=== PATIENT | female | born 1985 | race American Indian/Alaskan Native ===

== ENCOUNTER 2020-11-27 21:41 | Emergency (ER) | payer SELFPAY ==
--- NOTE | 2020-11-27 23:19 | Emergency Department Report ---
ED General Adult HPI - General Chief complaint: Fever Stated complaint: CONSTANT FEVER Time Seen by Provider: 11/27/20 22:50 Source: patient Mode of arrival: Ambulatory Limitations: No Limitations - History of Present Illness Initial comments: Patient is a 35-year-old female presents emergency room with complaints of a fever that began 6 days ago. She states that she went to another emergency department on 11/23/2020 and states that she had an x-ray of her chest which she reports was normal. She states that she did have hypokalemia and that gave her a potassium pill. She states that she did receive a rapid COVID-19 test on 11/23/2020 and states it was negative. she states she was given a prescription for prednisone and zofran. She states that she has nausea and vomiting. She states that the vomiting has improved and she only has it once a day. she is able to tolerate PO intake. She states that she is also been having some diarrhea. She states that she does have a sore throat. She denies any cough, shortness of breath, ear pain, abdominal pain, urinary symptoms, pelvic pain, abnormal vaginal discharge. She denies any known sick contacts or recent travel. No past medical history. No allergies medications. Last menstrual cycle last week. Patient states that she has also noticed a mild diffuse rash over the last few days, she states that she does have itching, she states that she did sleep in a hotel. - Related Data Allergies Allergy/AdvReac Type Severity Reaction Status Date / Time No Known Allergies Allergy Unverified 11/27/20 21:56 ED Review of Systems ROS: Stated complaint: CONSTANT FEVER Other details as noted in HPI Comment: All other systems reviewed and negative ED Past Medical Hx - Past Medical History Previous Medical History?: No - Surgical History Past Surgical History?: No - Social History Smoking Status: Never Smoker Substance Use Type: Alcohol ED Physical Exam - General Limitations: No Limitations General appearance: alert, in no apparent distress - Head Head exam: Present: atraumatic, normocephalic - Eye Eye exam: Present: normal appearance - ENT ENT exam: Present: normal orophraynx, mucous membranes moist, TM's normal bilaterally, normal external ear exam - Neck Neck exam: Present: normal inspection, full ROM. Absent: tenderness, meningismus - Respiratory Respiratory exam: Present: normal lung sounds bilaterally. Absent: respiratory distress, wheezes, rales, rhonchi, stridor, chest wall tenderness, accessory muscle use, decreased breath sounds, prolonged expiratory - Cardiovascular Cardiovascular Exam: Present: regular rate, normal rhythm, normal heart sounds. Absent: systolic murmur, diastolic murmur, rubs, gallop - Neurological Exam Neurological exam: Present: alert, oriented X3 - Psychiatric Psychiatric exam: Present: normal affect, normal mood - Skin Skin exam: Present: warm, dry, rash (a few medium sized erythematous papules consistent with bites, no scaling, no blistering, no skin denuding, no surrounding erythema, no drainage) ED Course Vital Signs 11/27/20 11/28/20 21:57 00:58 Temperature 100.1 F H 98.6 F Pulse Rate 106 H 80 Respiratory 18 16 Rate Blood Pressure 110/83 Blood Pressure 112/74 [Left] O2 Sat by Pulse 98 100 Oximetry ED Medical Decision Making - Lab Data Result diagrams: 11/27/20 23:15 11/27/20 23:15 Lab Results 11/27/20 11/27/20 11/27/20 Range/Units 23:15 23:15 23:15 WBC 5.0 (4.5-11.0) K/mm3 RBC 3.90 (3.65-5.03) M/mm3 Hgb 11.9 (10.1-14.3) gm/dl Hct 35.5 (30.3-42.9) % MCV 91 (79-97) fl MCH 30 (28-32) pg MCHC 33 (30-34) % RDW 13.9 (13.2-15.2) % Plt Count 243 (140-440) K/mm3 [place] % (Auto) [employer] Sodium 135 L (137-145) mmol/L Potassium 3.4 L (3.6-5.0) mmol/L Chloride 98.2 (98-107) mmol/L Carbon Dioxide 25 (22-30) mmol/L Anion Gap 15 mmol/L BUN 6 L (7-17) mg/dL Creatinine 0.5 L (0.6-1.2) mg/dL Estimated GFR > 60 ml/min BUN/Creatinine Ratio 12 % Glucose 80 (65-100) mg/dL Calcium 8.7 (8.4-10.2) mg/dL Total Bilirubin < 0.20 (0.1-1.2) mg/dL AST 21 (5-40) units/L ALT 15 (7-56) units/L Alkaline Phosphatase 65 (35-129) units/L Total Protein 7.2 (6.3-8.2) g/dL Albumin 3.5 L (3.9-5) g/dL Albumin/Globulin Ratio 0.9 % HCG, Qual Negative (Negative) Urine Color (Yellow) Urine Turbidity (Clear) Urine pH (5.0-7.0) Ur Specific [place] (1.003-1.030) Urine Protein (Negative) mg/dL Urine Glucose (UA) (Negative) mg/dL Urine Ketones (Negative) mg/dL Urine Blood (Negative) Urine Nitrite (Negative) Urine Bilirubin (Negative) Urine Urobilinogen (<2.0) mg/dL Ur Leukocyte Esterase (Negative) Urine WBC (Auto) (0.0-6.0) /HPF Urine RBC (Auto) (0.0-6.0) /HPF U Epithel Cells (Auto) (0-13.0) /HPF Urine Bacteria (Auto) (Negative) /HPF Calcium Oxalate Crystal Urine Mucus /HPF 11/27/20 Range/Units Unknown WBC (4.5-11.0) K/mm3 RBC (3.65-5.03) M/mm3 Hgb (10.1-14.3) gm/dl Hct (30.3-42.9) % MCV (79-97) fl MCH (28-32) pg MCHC (30-34) % RDW (13.2-15.2) % Plt Count (140-440) K/mm3 [place] % (Auto) Sodium (137-145) mmol/L Potassium (3.6-5.0) mmol/L Chloride (98-107) mmol/L Carbon Dioxide (22-30) mmol/L Anion Gap mmol/L BUN (7-17) mg/dL Creatinine (0.6-1.2) mg/dL Estimated GFR ml/min BUN/Creatinine Ratio % Glucose (65-100) mg/dL Calcium (8.4-10.2) mg/dL Total Bilirubin (0.1-1.2) mg/dL AST (5-40) units/L ALT (7-56) units/L Alkaline Phosphatase (35-129) units/L Total Protein (6.3-8.2) g/dL Albumin (3.9-5) g/dL Albumin/Globulin Ratio % HCG, Qual (Negative) Urine Color Yellow (Yellow) Urine Turbidity Clear (Clear) Urine pH 6.0 (5.0-7.0) Ur Specific [place] 1.024 (1.003-1.030) Urine Protein <15 mg/dl (Negative) mg/dL Urine Glucose (UA) Neg (Negative) mg/dL Urine Ketones Neg (Negative) mg/dL Urine Blood Sm (Negative) Urine Nitrite Neg (Negative) Urine Bilirubin Neg (Negative) Urine Urobilinogen 4.0 (<2.0) mg/dL Ur Leukocyte Esterase Neg (Negative) Urine WBC (Auto) 1.0 (0.0-6.0) /HPF Urine RBC (Auto) 3.0 (0.0-6.0) /HPF U Epithel Cells (Auto) < 1.0 (0-13.0) /HPF Urine Bacteria (Auto) 1+ (Negative) /HPF Calcium Oxalate Crystal 1+ Urine Mucus 2+ /HPF Vital Signs 11/27/20 11/28/20 21:57 00:58 Temperature 100.1 F H 98.6 F Pulse Rate 106 H 80 Respiratory 18 16 Rate Blood Pressure 110/83 Blood Pressure 112/74 [Left] O2 Sat by Pulse 98 100 Oximetry - Medical Decision Making Patient is a 35-year-old female presents emergency room with complaints of a fever that began 6 days ago. She states that she went to another emergency department on 11/23/2020 and states that she had an x-ray of her chest which she reports was normal. She states that she did have hypokalemia and that gave her a potassium pill. She states that she did receive a rapid COVID-19 test on 11/23/2020 and states it was negative. she states she was given a prescription for prednisone and zofran. She states that she has nausea and vomiting. She states that the vomiting has improved and she only has it once a day. she is able to tolerate PO intake. She states that she is also been having some diarrhea. She states that she does have a sore throat. She denies any cough, shortness of breath, ear pain, abdominal pain, urinary symptoms, pelvic pain, abnormal vaginal discharge. She denies any known sick contacts or recent travel. No past medical history. No allergies medications. Last menstrual cycle last week. Patient states that she has also noticed a mild diffuse rash over the last few days, she states that she does have itching, she states that she did sleep in a hotel. Initial vitals with mild low-grade temp and mild tachycardia which improved upon repeat to normal. No abnormality on physical examination as documented in chart. Labs with mild hypokalemia 3.4, repleted with K-Dur. UA with no evidence of UTI or dehydration. Patient is able to tolerate p.o. intake without difficulty. Symptoms most likely related to viral illness. Discussed return precautions with patient. Discussed the importance of primary care follow-up. Advised patient May alternate Tylenol and ibuprofen every 6-8 hours as needed for fever. Increase her fluid intake over the next several days. Follow-up with your primary care doctor. Return to emergency room for any new or worsening symptoms. Critical care attestation.: If time is entered above; I have spent that time in minutes in the direct care of this critically ill patient, excluding procedure time. ED Disposition Clinical Impression: Viral illness, Hypokalemia Disposition: DC- TO HOME OR SELFCARE Is pt being admited?: No Does the pt Need Aspirin: No Condition: Stable Instructions: Hypokalemia, Viral Illness, Adult Additional Instructions: May alternate Tylenol and ibuprofen every 6-8 hours as needed for fever. Increase her fluid intake over the next several days. Follow-up with your primary care doctor. Return to emergency room for any new or worsening symptoms. Referrals: ALIDA GONZALEZ MD [Primary Care Provider] - 2-3 Days MICK SINGH MD [Staff Physician] - 2-3 Days [facility] [Provider Group] - 2-3 Days Forms: Work/School Release Form(ED) Time of Disposition: 00:36 Print Language: INDONESIAN
[2020-11-27 23:43] LABS: Hematocrit 35.5 % (30.3-42.9); Hemoglobin 11.9 gm/dl (10.1-14.3); Mean Corpuscular HGB Conc 33 % (30-34); Mean Corpuscular Volume 91 fl (79-97); Platelet Count 243 K/mm3 (140-440); Red Cell Distribution Width 13.9 % (13.2-15.2)
[2020-11-27 23:52] LABS: Bacteria,Urine 1+ /HPF (Negative); Bilirubin,Urine NEG (Negative); Blood,Urine SM (Negative); Calcium Oxalate Crystals,Urine 1+; Color,Urine Yellow (Yellow); Mucus,Urine 2+ /HPF; Protein,Urine <15 mg/dL mg/dL (Negative)
[2020-11-28 00:02] LABS: Alanine Aminotransferase 15 units/L (7-56); Albumin 3.5 g/dL (3.9-5); Blood Urea Nitrogen 6 mg/dL (7-17); Calcium 8.7 mg/dL (8.4-10.2); Hemolysis Index 6
[2020-11-28 00:04] LABS: BUN/Creatinine Ratio 12
[2020-11-28] MEDS ORDERED: POTASSIUM CHLORIDE ER 20 MEQ TAB PO ONE (00:23)
[2020-11-28 00:59] VITALS: BP 112/74
[2020-11-28 03:20] LABS: Total Cells Counted 100
[2020-11-28 03:21] LABS: Anisocytosis 1+; Platelet Estimate Consistent w Auto
== END 2020-11-28 01:00 | disposition home or self-care (01) ==
LOC: ED 21:41
DX: B34.9 Viral infection, unspecified (principal); R50.9 Fever, unspecified; R11.2 Nausea with vomiting, unspecified; E87.6 Hypokalemia; Z72.89 Other problems related to lifestyle; Z79.899 Other long term (current) drug therapy
CPT/HCPCS: 36415; 80053; 81001; 84703; 85007; 85025; 99283